=== PATIENT | female | born 2000 | race American Indian/Alaskan Native ===

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

== ENCOUNTER 2020-01-21 19:58 | Emergency (ER) | payer MEDICAID ==
[2020-01-21 21:49] LABS: Basophils # (Auto) 0.1 K/mm3 (0.0-0.1); Basophils % (Auto) 0.9 % (0.0-1.8); Eosinophils # (Auto) 0.4 K/mm3 (0.0-0.4); Eosinophils % (Auto) 4.4 % (0.0-4.3); Hematocrit 35.4 % (30.3-42.9); Hemoglobin 11.5 gm/dl (10.1-14.3); Lymphocytes # (Auto) 2.1 K/mm3 (1.2-5.4); Lymphocytes % (Auto) 25.5 % (13.4-35.0); Mean Corpuscular HGB Conc 32 % (30-34); Mean Corpuscular Volume 84 fl (79-97); Monocytes # (Auto) 0.7 K/mm3 (0.0-0.8); Monocytes % (Auto) 8.8 % (0.0-7.3); Platelet Count 299 K/mm3 (140-440); Red Blood Count 4.23 M/mm3 (3.65-5.03); Red Cell Distribution Width 17.1 % (13.2-15.2)
[2020-01-21 21:52] LABS: Bacteria,Urine 1+ /HPF (Negative); Bilirubin,Urine NEG (Negative); Blood,Urine MOD (Negative); Color,Urine Yellow (Yellow); Urobilinogen,Urine < 2.0 mg/dL (<2.0)
[2020-01-21 21:53] LABS: RBC,Urine > 182.0 /HPF (0.0-6.0)
[2020-01-21] MEDS ORDERED: ACETAMINOPHEN 325 MG TAB PO ONE (22:50)
[2020-01-21] MEDS ORDERED: ACETAMINOPHEN 325 MG TAB ONE (22:51)
--- NOTE | 2020-01-21 23:27 | Emergency Department Report ---
ED HPI - General Chief complaint: Vaginal Bleeding Stated complaint: VAG BLEED (13 WKS PREG) Time Seen by Provider: 01/21/20 22:25 Source: patient Mode of arrival: Ambulatory Limitations: No Limitations - History of Present Illness Initial comments: Patient is a 19-year-old female presents emergency room with complaints of vaginal bleeding that began this morning. She has associated lower abdominal cramping. She states that she has had to change her pad approximately 6 times today. She states that she is currently 13 weeks . She states that she is supposed to be going to [facility] but has not had her first appointment yet. She does not report any fever, nausea, vomiting, diarrhea, cough, shortness of breath, chest pain. She denies any past medical history. She states she has an allergy to Robitussin. She states her last menstrual cycle was 10/07/2019. /P:1/A:1 - Related Data Previous Rx's Medication Instructions Recorded Last Taken Type Benzonatate [Tessalon Perles] 100 mg PO Q8HR #30 capsule 09/28/19 Unknown Rx Ciprofloxacin HCl [Ciprofloxacin 500 mg PO Q12HR #14 tab 09/28/19 Unknown Rx TAB] Cyclobenzaprine [Flexeril] 10 mg PO TID PRN #10 tablet 09/28/19 Unknown Rx Ibuprofen [Motrin 800 MG tab] 800 mg PO Q8HR PRN #20 tablet 09/28/19 Unknown Rx Allergies Allergy/AdvReac Type Severity Reaction Status Date / Time guaifenesin [From Robitussin] Allergy Swelling Verified 09/28/19 19:52 ED Review of Systems ROS: Stated complaint: VAG BLEED (13 WKS PREG) Other details as noted in HPI Comment: All other systems reviewed and negative ED Past Medical Hx - Past Medical History Previous Medical History?: Yes Hx Headaches / Migraines: Yes - Surgical History Past Surgical History?: No - Social History Smoking Status: Never Smoker - Medications Home Medications: Home Medications Medication Instructions Recorded Confirmed Last Taken Type Benzonatate [Tessalon Perles] 100 mg PO Q8HR #30 capsule 09/28/19 Unknown Rx Ciprofloxacin HCl [Ciprofloxacin 500 mg PO Q12HR #14 tab 09/28/19 Unknown Rx TAB] Cyclobenzaprine [Flexeril] 10 mg PO TID PRN #10 tablet 09/28/19 Unknown Rx Ibuprofen [Motrin 800 MG tab] 800 mg PO Q8HR PRN #20 tablet 09/28/19 Unknown Rx ED Physical Exam - General Limitations: No Limitations General appearance: alert, in no apparent distress - Head Head exam: Present: atraumatic, normocephalic - Eye Eye exam: Present: normal appearance - ENT ENT exam: Present: mucous membranes moist - Respiratory Respiratory exam: Present: normal lung sounds bilaterally. Absent: respiratory distress, wheezes, rales, rhonchi, stridor, chest wall tenderness, accessory muscle use, decreased breath sounds, prolonged expiratory - Cardiovascular Cardiovascular Exam: Present: regular rate, normal rhythm, normal heart sounds. Absent: systolic murmur, diastolic murmur, rubs, gallop - GI/Abdominal GI/Abdominal exam: Present: soft, tenderness (mild lower), normal bowel sounds. Absent: distended, guarding, rebound, rigid - Neurological Exam Neurological exam: Present: alert, oriented X3 - Psychiatric Psychiatric exam: Present: normal affect, normal mood - Skin Skin exam: Present: warm, dry, intact ED Course Vital Signs 01/21/20 01/22/20 20:36 00:01 Temperature 98.2 F Pulse Rate 72 Respiratory 20 15 Rate Blood Pressure 106/67 Blood Pressure 120/77 [Right] O2 Sat by Pulse 99 Oximetry ED Medical Decision Making - Lab Data Result diagrams: 01/21/20 21:22 Lab Results 01/21/20 01/21/20 01/21/20 Range/Units 21:22 21:22 21:22 WBC 8.4 (4.5-11.0) K/mm3 RBC 4.23 (3.65-5.03) M/mm3 Hgb 11.5 (10.1-14.3) gm/dl Hct 35.4 (30.3-42.9) % MCV 84 (79-97) fl MCH 27 L (28-32) pg MCHC 32 (30-34) % RDW 17.1 H (13.2-15.2) % Plt Count 299 (140-440) K/mm3 Lymph % (Auto) 25.5 (13.4-35.0) % [place] % (Auto) 8.8 H (0.0-7.3) % Eos % (Auto) 4.4 H (0.0-4.3) % Baso % (Auto) 0.9 (0.0-1.8) % Lymph # 2.1 (1.2-5.4) K/mm3 [place] # 0.7 (0.0-0.8) K/mm3 Eos # 0.4 (0.0-0.4) K/mm3 Baso # 0.1 (0.0-0.1) K/mm3 Seg Neutrophils % 60.4 (40.0-70.0) % Seg Neutrophils # 5.1 (1.8-7.7) K/mm3 HCG, Quant 1978 H (0-4) mIU/mL Urine Color (Yellow) Urine Turbidity (Clear) Urine pH (5.0-7.0) Ur Specific [place] (1.003-1.030) Urine Protein (Negative) mg/dL Urine Glucose (UA) (Negative) mg/dL Urine Ketones (Negative) mg/dL Urine Blood (Negative) Urine Nitrite (Negative) Urine Bilirubin (Negative) Urine Urobilinogen (<2.0) mg/dL Ur Leukocyte Esterase (Negative) Urine WBC (Auto) (0.0-6.0) /HPF Urine RBC (Auto) (0.0-6.0) /HPF U Epithel Cells (Auto) (0-13.0) /HPF Urine Bacteria (Auto) (Negative) /HPF Urine WBC Clumps /HPF Urine Yeast (Budding) /HPF Blood Type O POSITIVE Ord Rhogam Gestat Weeks Rh pos WEEKS 01/21/20 Range/Units Unknown WBC (4.5-11.0) K/mm3 RBC (3.65-5.03) M/mm3 Hgb (10.1-14.3) gm/dl Hct (30.3-42.9) % MCV (79-97) fl MCH (28-32) pg MCHC (30-34) % RDW (13.2-15.2) % Plt Count (140-440) K/mm3 Lymph % (Auto) (13.4-35.0) % [place] % (Auto) (0.0-7.3) % Eos % (Auto) (0.0-4.3) % Baso % (Auto) (0.0-1.8) % Lymph # (1.2-5.4) K/mm3 [place] # (0.0-0.8) K/mm3 Eos # (0.0-0.4) K/mm3 Baso # (0.0-0.1) K/mm3 Seg Neutrophils % (40.0-70.0) % Seg Neutrophils # (1.8-7.7) K/mm3 HCG, Quant (0-4) mIU/mL Urine Color Yellow (Yellow) Urine Turbidity Turbid (Clear) Urine pH 9.0 H (5.0-7.0) Ur Specific [place] 1.018 (1.003-1.030) Urine Protein 30 mg/dl (Negative) mg/dL Urine Glucose (UA) Neg (Negative) mg/dL Urine Ketones Neg (Negative) mg/dL Urine Blood Mod (Negative) Urine Nitrite Neg (Negative) Urine Bilirubin Neg (Negative) Urine Urobilinogen < 2.0 (<2.0) mg/dL Ur Leukocyte Esterase Sm (Negative) Urine WBC (Auto) 33.0 H (0.0-6.0) /HPF Urine RBC (Auto) > 182.0 (0.0-6.0) /HPF U Epithel Cells (Auto) 3.0 (0-13.0) /HPF Urine Bacteria (Auto) 1+ (Negative) /HPF Urine WBC Clumps 3+ /HPF Urine Yeast (Budding) 2+ /HPF Blood Type Ord Rhogam Gestat Weeks WEEKS - Radiology Data Radiology results: report reviewed US OB <= 14 weeks fetus INDICATION / CLINICAL INFORMATION: Vaginal bleeding 13 weeks . COMPARISON: 12/31/2019 FINDINGS: No intrauterine is identified. Uterus is mildly enlarged. Endometrial canal measures 8 mm. Both ovaries are normal in size and appearance. IMPRESSION: No intrauterine identified. Signer Name: Bhanu Goyal MD FACR Signed: 01/22/2020 12:02 AM Workstation Name: [id number] Transcribed By: MS Dictated By: Bhanu Goyal MD Electronically Authenticated By: Bhanu Goyal MD Signed Date/Time: 01/22/20 0002 DD/ 0001 TD/TT: - Medical Decision Making Patient is a 19-year-old female presents emergency room with complaints of vaginal bleeding that began this morning. She has associated lower abdominal cramping. She states that she has had to change her pad approximately 6 times today. She states that she is currently 13 weeks . She states that she is supposed to be going to [facility] but has not had her first appointment yet. She does not report any fever, nausea, vomiting, diarrhea, cough, shortness of breath, chest pain. She denies any past medical history. She states she has an allergy to Robitussin. She states her last menstrual cycle was 10/07/2019. /P:1/A:1. Vitals are normal. hCG quant today is 1977. during [place] [id number]. UA has many red blood cells, there is some white blood cells and very small leukocyte esterase, most likely contamination secondary to red blood cells, patient is not having any urinary symptoms, will have patient have her urine repeated by [facility]. US OB: No intrauterine identified. hCG quant has decreased and ultrasound consistent with a spontaneous . Discussed all results with patient. advised pt to Please increase your water intake. Follow-up with [facility] in the next 2-3 days. Return to emergency room for any new or worsening symptoms. Critical care attestation.: If time is entered above; I have spent that time in minutes in the direct care of this critically ill patient, excluding procedure time. ED Disposition Clinical Impression: Spontaneous miscarriage Disposition: DC-01 TO HOME OR SELFCARE Is pt being admited?: No Does the pt Need Aspirin: No Condition: Stable Instructions: Spontaneous Miscarriage (ED) Additional Instructions: Please increase your water intake. Follow-up with [facility] in the next 2-3 days. Return to emergency room for any new or worsening symptoms. Referrals: [facility] [Provider Group] - 2-3 Days Time of Disposition: 00:12 Print Language: WELSH
--- NOTE | 2020-01-22 00:06 | Ultrasound Report ---
US OB <= 14 weeks fetus INDICATION / CLINICAL INFORMATION: Vaginal bleeding 13 weeks . COMPARISON: 12/31/2019 FINDINGS: No intrauterine is identified. Uterus is mildly enlarged. Endometrial canal measures 8 mm. Both ovaries are normal in size and appearance. IMPRESSION: No intrauterine identified. Signer Name: Bhanu Goyal MD FACR Signed: 01/22/2020 12:02 AM Workstation Name: [employer]
[2020-01-22 00:12] VITALS: BP 120/77
== END 2020-01-22 00:20 | disposition home or self-care (01) ==
LOC: ED 19:58
DX: O03.9 Complete or unspecified spontaneous abortion without complication (principal); Z3A.13 13 weeks gestation of pregnancy
CPT/HCPCS: 36415; 76801; 81001; 84702; 85025; 86900; 86901; 87086; 99284

== ENCOUNTER 2021-05-28 09:49 | Outpatient (CLI) | payer MEDICAID ==
[2021-05-28 10:20] VITALS: BP 110/74
[2021-05-28 11:33] LABS: Basophils % (Auto) 0.2 % (0.0-1.8); Eosinophils # (Auto) 0.2 K/mm3 (0.0-0.4); Eosinophils % (Auto) 1.9 % (0.0-4.3); Hematocrit 33.6 % (30.3-42.9); Hemoglobin 11.6 gm/dl (10.1-14.3); Lymphocytes # (Auto) 0.9 K/mm3 (1.2-5.4); Mean Corpuscular HGB Conc 34 % (30-34); Mean Corpuscular Volume 91 fl (79-97); Monocytes # (Auto) 0.7 K/mm3 (0.0-0.8); Monocytes % (Auto) 6.8 % (0.0-7.3); Platelet Count 173 K/mm3 (140-440); Red Cell Distribution Width 14.9 % (13.2-15.2)
[2021-05-28 11:37] LABS: Bilirubin,Urine NEG (Negative); Blood,Urine NEG (Negative); Color,Urine Yellow (Yellow); Mucus,Urine 3+ /HPF; RBC,Urine < 1.0 /HPF (0.0-6.0)
[2021-05-28] MEDS ORDERED: BETAMET ACET/BETAMET NA PH 6 MG/ML INJ 5 ML MDV IM STA (12:20)
[2021-05-28] MEDS ORDERED: BETAMET ACET/BETAMET NA PH 6 MG/ML INJ 5 ML MDV IM ONE (12:22)
== END 2021-05-28 13:58 | disposition home or self-care (01) ==
LOC: TRG 09:49 → APU 09:51 → TRG 13:58
PROVIDERS: ATTEND Obstetrics & Gynecology
DX: O26.892 Other specified pregnancy related conditions, second trimester (principal); R10.9 Unspecified abdominal pain; Z3A.24 24 weeks gestation of pregnancy
CPT/HCPCS: 36415; 59020; 81001; 82731; 85025; 96372; J0702

== ENCOUNTER 2021-05-29 12:42 | Outpatient (CLI) | payer MEDICAID ==
[2021-05-29] MEDS ORDERED: BETAMET ACET/BETAMET NA PH 6 MG/ML INJ 5 ML MDV IM ONE (13:25)
== END 2021-05-29 13:42 | disposition home or self-care (01) ==
LOC: TRG 12:42 → APU 12:43 → TRG 13:42
PROVIDERS: ATTEND Obstetrics & Gynecology
DX: Z34.92 Encounter for supervision of normal pregnancy, unspecified, second trimester (principal); Z3A.23 23 weeks gestation of pregnancy
CPT/HCPCS: 96372; J0702

== ENCOUNTER 2021-07-07 00:18 | Outpatient (CLI) | payer MEDICAID ==
[2021-07-07] MEDS ORDERED: LACTATED RINGERS 500 ML IV ONE (00:31)
[2021-07-07 00:32] VITALS: BP 116/77
[2021-07-07] MEDS ORDERED: ACETAMINOPHEN 500 MG TAB PO ONE (01:14)
[2021-07-07] MEDS ORDERED: TERBUTALINE 1 MG/1 ML INJ SUB-Q PRN (01:14)
[2021-07-07] MEDS ORDERED: LACTATED RINGERS 1,000 ML IV ONE (01:14)
[2021-07-07 01:55] LABS: Bilirubin,Urine NEG (Negative); Blood,Urine NEG (Negative); Color,Urine Yellow (Yellow); Mucus,Urine 3+ /HPF; Protein,Urine <15 mg/dL mg/dL (Negative)
== END 2021-07-07 02:35 | disposition home or self-care (01) ==
LOC: TRG 00:18 → APU 00:25 → TRG 02:35
PROVIDERS: ATTEND Obstetrics & Gynecology
DX: O62.9 Abnormality of forces of labor, unspecified (principal); O26.893 Other specified pregnancy related conditions, third trimester; R10.9 Unspecified abdominal pain; Z3A.30 30 weeks gestation of pregnancy
CPT/HCPCS: 36415; 59025; 81001; 84112; 96360; J7120

== ENCOUNTER 2021-08-14 13:49 | Inpatient (IN) | payer MEDICAID ==
[2021-08-14 15:31] LABS: Hematocrit 34.8 % (30.3-42.9); Hemoglobin 11.1 gm/dl (10.1-14.3); Mean Corpuscular HGB Conc 32 % (30-34); Mean Corpuscular Volume 90 fl (79-97); Platelet Count 216 K/mm3 (140-440); Red Blood Count 3.87 M/mm3 (3.65-5.03); Red Cell Distribution Width 15.6 % (13.2-15.2)
[2021-08-14 15:52] LABS: Alanine Aminotransferase 7 units/L (7-56); Albumin 4.1 g/dL (3.9-5); Blood Urea Nitrogen 9 mg/dL (7-17); Calcium 9.5 mg/dL (8.4-10.2); Hemolysis Index 11
[2021-08-14 15:54] LABS: BUN/Creatinine Ratio 18
[2021-08-14] MEDS ORDERED: TERBUTALINE 1 MG/1 ML INJ SUB-Q PRN (15:58)
[2021-08-14] MEDS ORDERED: OXYTOCIN 10 UNIT/1 ML INJ IM PRN (15:58)
[2021-08-14] MEDS ORDERED: NalbUPHINE 10 MG/1 ML INJ IV PRN (15:58)
[2021-08-14] MEDS ORDERED: miSOPROStol 200 MCG TAB PR PRN (15:58)
[2021-08-14] MEDS ORDERED: ONDANSETRON 4 MG/2 ML INJ IV PRN (15:58)
[2021-08-14] MEDS ORDERED: ACETAMINOPHEN 325 MG TAB PO PRN (15:58)
[2021-08-14] MEDS ORDERED: ePHEDrine SULFATE 50 MG/1 ML INJ IV PRN (15:58)
[2021-08-14] MEDS ORDERED: METHYLERGONOVINE MALEATE 0.2 MG/ML VIAL IM PRN (15:58)
[2021-08-14] MEDS ORDERED: BUTORPHANOL 2 MG/1 ML INJ IV PRN (15:58)
[2021-08-14] MEDS ORDERED: LOPERAMIDE 2 MG CAP PO PRN (15:58)
[2021-08-14] MEDS ORDERED: CARBOPROST TROMETHAMINE 250 MCG/1 ML INJ IM PRN (15:58)
[2021-08-14] MEDS ORDERED: MINERAL OIL 30 ML ORAL LIQD PO PRN (15:58)
[2021-08-14] MEDS ORDERED: LACTATED RINGERS 1,000 ML IV SCH (16:00)
[2021-08-14] MEDS ORDERED: OXYTOCIN DRIP 30 UNITS/500 ML BAG IV SCH ×2 (16:00)
[2021-08-14] MEDS ORDERED: miSOPROStol 200 MCG TAB VG SCH (16:00)
[2021-08-14] MEDS ORDERED: LIDOCAINE (2%) 20 MG/1 ML VIAL 20 ML MDV INFILTRATI ONE (16:15)
[2021-08-14] MEDS: fentaNYL 100 MCG/2 ML INJ IV PRN ×2 (20:51→23:05)
[2021-08-14] MEDS ORDERED: ZOLPIDEM 5 MG TAB PO ONE (22:53)
[2021-08-15] MEDS: fentaNYL 100 MCG/2 ML INJ IV PRN (02:48)
--- NOTE | 2021-08-15 03:29 | History and Physical Report ---
History of Present Illness Date of examination: 08/15/21 Date of admission: 08/14/21 13:49 Chief complaint: Intrauterine demise History of present illness: 20-year-old -0-1-1 at 34+5 weeks who presents with an intrauterine demise. The patient initiated care in the first trimester. Her course is complicated by a fetus with multiple anomalies ultrasound demonstrated that the had a partially absent calvarium, unilateral c lubfoot, suspected spina bifida. The fetus also demonstrated significant intrauterine growth restriction. The patient was evaluated by MFM and was found to have evidence of a demise. She was sent to labor and delivery for induction of labor. Past History Past Medical History: no pertinent history Past Surgical History: no surgical history Social history: single - Obstetrical History Expected Date of Delivery: 09/21/21 Actual Gestation: 34 Week(s) 5 Day(s) : 3 Para: 1 Hx # Term Pregnancies: 1 Spontaneous Abortions: 1 Induced : 0 Number of Living Children: 1 Medications and Allergies Allergies Allergy/AdvReac Type Severity Reaction Status Date / Time guaifenesin [From Robitussin] Allergy Swelling Verified 09/28/19 19:52 Home Medications Medication Instructions Recorded Confirmed Last Taken Type Benzonatate [Tessalon Perles] 100 mg PO Q8HR #30 capsule 09/28/19 Unknown Rx Ciprofloxacin HCl [Ciprofloxacin 500 mg PO Q12HR #14 tab 09/28/19 Unknown Rx TAB] Cyclobenzaprine [Flexeril] 10 mg PO TID PRN #10 tablet 09/28/19 Unknown Rx Ibuprofen [Motrin 800 MG tab] 800 mg PO Q8HR PRN #20 tablet 09/28/19 Unknown Rx Active Meds: Active Medications Acetaminophen (Acetaminophen 325 Mg Tab) 650 mg PO Q4H PRN PRN Reason: Pain, Mild (1-3) Butorphanol Tartrate (Butorphanol 2 Mg/1 Ml Inj) 1 mg IV Q2H PRN PRN Reason: Pain, Moderate(4-6) LABOR PAIN Carboprost Tromethamine (Carboprost Tromethamine 250 Mcg/1 Ml Inj) 250 mcg IM ONCE PRN PRN Reason: Uterine Bleeding Ephedrine Sulfate (Ephedrine Sulfate 50 Mg/1 Ml Inj) 10 mg IV Q2M PRN PRN Reason: Hypotension Fentanyl (Fentanyl 100 Mcg/2 Ml Inj) 100 mcg IV Q2H PRN PRN Reason: Pain,Severe (7-10) LABOR PAIN Last Admin: 08/15/21 02:48 Dose: 100 mcg Documented by: Oxytocin/Sodium Chloride (Pitocin/Ns 30 Unit/500ml) 30 units in 500 mls @ 2 mls/hr IV TITR NEGRO; Protocol Lactated Ringer's (Lactated Ringers) 1,000 mls @ 125 mls/hr IV DIRECT NEGRO Last Admin: 08/14/21 17:50 Dose: 125 mls/hr Documented by: Oxytocin/Sodium Chloride (Pitocin/Ns 30 Unit/500ml) 30 units in 500 mls @ 40 mls/hr IV TITR NEGRO; Protocol Loperamide HCl (Loperamide 2 Mg Cap) 2 mg PO ONCE PRN PRN Reason: give with Hemabate Methylergonovine Maleate (Methylergonovine Maleate 0.2 Mg/Ml Vial) 0.2 mg IM ONCE PRN PRN Reason: Uterine Bleeding Mineral Oil (Mineral Oil 30 Ml Oral Liqd) 30 ml PO QHS PRN PRN Reason: Constipation Misoprostol (Misoprostol 200 Mcg Tab) 200 mcg VG Q8HR NEGRO Nalbuphine HCl (Nalbuphine 10 Mg/1 Ml Inj) 10 mg IV Q2H PRN PRN Reason: Pain, Moderate (4-6) Ondansetron HCl (Ondansetron 4 Mg/2 Ml Inj) 4 mg IV Q8H PRN PRN Reason: Nausea And Vomiting Oxytocin (Oxytocin 10 Unit/1 Ml Inj) 10 unit IM ONCE PRN PRN Reason: Uterine Bleeding Terbutaline Sulfate (Terbutaline 1 Mg/1 Ml Inj) 0.25 mg SUB-Q ONCE PRN PRN Reason: Hyperstimulation/Hypertonicity Review of Systems All systems: negative Genitourinary: no vaginal bleeding, no leakage of fluid - Vital Signs Vital signs: Vital Signs Pulse Pulse Ox 84 82 L 08/14/21 14:08 08/14/21 14:08 Temp Pulse Resp BP Pulse Ox 98.4 F 86 18 113/58 99 08/14/21 19:00 08/15/21 02:59 08/15/21 02:48 08/15/21 02:59 08/15/21 01:58 - Physical Exam Breasts: Positive: deferred Cardiovascular: Regular rate Lungs: Positive: Clear to auscultation Abdomen: Positive: normal appearance Results Result Diagrams: 08/14/21 15:00 08/14/21 15:00 Abnormal lab results 08/14/21 08/14/21 Range/Units 15:00 15:00 RDW 15.6 H (13.2-15.2) % Creatinine 0.5 L (0.6-1.2) mg/dL All other labs normal. Assessment and Plan - Patient Problems (1) demise Current Visit: Yes Status: Acute Plan to address problem: Admit for induction of labor (2) anomaly Current Visit: Yes Status: Acute
[2021-08-15] MEDS ORDERED: PROMETHAZINE 25 MG RECT SUPP PR PRN (03:33)
[2021-08-15] MEDS ORDERED: MAGNESIUM HYDROXIDE (MOM) ORAL LIQD UDC PO PRN (03:33)
[2021-08-15] MEDS ORDERED: LANOLIN/ZINC/DIMETHICONE (LANSINOH) 7 GM TP PRN (03:33)
[2021-08-15] MEDS ORDERED: WITCH HAZEL/ GLYCERIN PAD TP PRN (03:33)
[2021-08-15] MEDS ORDERED: PROMETHAZINE 25 MG TAB PO PRN (03:33)
[2021-08-15] MEDS ORDERED: ONDANSETRON 4 MG/2 ML INJ IV PRN (03:33)
[2021-08-15] MEDS ORDERED: diphenhydrAMINE 25 MG CAP PO PRN (03:33)
--- NOTE | 2021-08-15 03:33 | Procedure Note ---
OB Delivery Note - Delivery Date of Delivery: 08/15/21 Surgeon: ORLIN KAUR Estimated blood loss: 100cc - Vaginal Delivery presentation: breech Intrapartum events: other(please specify) ( demise; anomalies) Delivery augmentation: pitocin Delivery monitor: external uterine Route of delivery: Delivery placenta: spontaneous Delivery laceration: none Anesthesia: none Delivery comments: The patient had cervical change with the initiation of Cytotec for induction. The patient progressed to complete complete with spontaneous rupture membranes. The fetus was noted to be in breech presentation. The patient pushed to deliver a nonviable male with multiple anomalies. The cord was clamped and cut and the was placed on the warmer. The placenta delivered spontaneously intact. No lacerations were noted. Estimated blood loss less than 100 mL - Infant A at 1 minute: 0 (Weight 1.13 kg) at 5 minutes: 0 Infant Gender: Male
[2021-08-15] MEDS ORDERED: HYDROcodone/ACETAMINOPHEN 5-325 MG TAB PO PRN (03:34)
[2021-08-15] MEDS ORDERED: IBUPROFEN 600 MG TAB PO SCH (04:00)
--- NOTE | 2021-08-15 11:42 | Progress Note ---
Assessment and Plan - Patient Problems (1) demise Current Visit: Yes Status: Acute Plan to address problem: Patient doing well Discharge home this afternoon (2) anomaly Current Visit: Yes Status: Acute Subjective - Subjective Date of service: 08/15/21 Interval history: Patient is without any significant complaints. She reports that her pain is well controlled and her lochia is minimal. The patient desires to be discharged later today. Patient reports: appetite normal, voiding normally, pain well controlled [place]: Objective - Vital Signs Latest vital signs: Vital Signs Temp Pulse Resp BP BP Pulse Ox Pulse Ox 08/15/21 08:36 98.7 F 79 18 120/70 98 08/15/21 05:40 98.3 F 78 20 116/70 98 98 08/15/21 02:59 86 113/58 08/15/21 02:48 18 08/15/21 01:58 108 H 99 08/15/21 01:53 106 H 100 08/15/21 01:48 86 99 08/15/21 01:43 85 100 08/15/21 01:38 86 100 08/15/21 01:14 94 H 99 08/15/21 01:09 90 100 08/15/21 01:04 99 H 100 08/15/21 00:59 89 99 08/15/21 00:54 89 97 08/15/21 00:49 94 H 98 08/15/21 00:44 88 99 08/15/21 00:39 84 100 08/15/21 00:34 83 97 08/15/21 00:24 77 100 08/15/21 00:19 74 100 08/15/21 00:14 77 99 08/15/21 00:09 74 100 08/15/21 00:04 98 H 99 08/14/21 23:59 78 98 08/14/21 23:54 79 98 08/14/21 23:49 78 98 08/14/21 23:44 76 99 08/14/21 23:39 79 97 08/14/21 23:34 79 98 08/14/21 23:29 80 97 08/14/21 23:24 81 97 08/14/21 23:19 81 97 08/14/21 23:14 80 97 08/14/21 23:09 78 97 08/14/21 23:04 91 H 100 10/22/21 22:59 74 99 1022/21 22:54 79 99 22/21 22:49 76 99 22/21 22:44 75 99 22/21 22:39 83 100 22/21 22:34 86 100 22/21 22:29 84 100 22/21 22:24 76 100 22/21 22:19 83 100 22/21 22:14 78 99 22/21 22:09 79 100 22/21 22:04 74 100 22/21 21:59 85 99 22/21 21:54 71 100 22/21 21:49 80 99 22/21 21:44 80 98 22/21 21:39 78 99 22/21 21:34 76 99 22/21 21:29 75 100 22/21 21:24 74 99 22/21 21:19 77 99 22/21 21:14 73 99 22/21 21:09 107 H 99 22/21 21:04 80 100 22/21 20:59 79 100 22/21 20:54 82 100 22/21 20:49 91 H 100 22/21 20:41 87 100 22/21 20:36 87 100 22/21 20:31 83 100 22/21 20:26 85 99 22/21 20:21 80 100 22/21 20:16 82 100 22/21 20:11 77 100 22/21 20:06 80 99 22/21 20:01 83 99 22/21 19:56 80 100 22/21 19:51 79 100 22/21 19:46 73 100 22/21 19:41 75 100 22/21 19:36 74 100 22/21 19:31 73 100 22/21 19:26 83 99 22/21 19:24 50 L 74 L 22/21 19:21 97 H 100 22/21 19:17 68 118/61 22/21 19:16 87 99 22/21 19:07 81 100 22/21 19:02 82 100 10/22/21 19:01 100 10/22/21 19:00 98.4 F 20 100 08/14/21 18:57 88 100 08/14/21 18:52 89 100 08/14/21 18:47 76 100 08/14/21 18:42 83 100 08/14/21 18:40 98.8 F 08/14/21 18:37 78 100 08/14/21 18:32 76 112/72 100 08/14/21 18:27 75 99 08/14/21 18:22 78 100 08/14/21 18:17 72 100 08/14/21 18:12 78 100 08/14/21 18:07 87 100 08/14/21 18:02 82 99 08/14/21 17:57 86 100 08/14/21 17:52 84 111/70 99 08/14/21 17:47 72 100 08/14/21 17:42 80 100 08/14/21 17:37 81 99 08/14/21 17:32 95 H 100 08/14/21 17:27 90 99 08/14/21 17:16 87 100 08/14/21 17:11 86 99 08/14/21 17:06 90 99 08/14/21 17:05 87 94 08/14/21 17:01 80 99 08/14/21 16:56 84 98 08/14/21 16:51 76 99 08/14/21 16:46 97 H 99 08/14/21 16:41 82 100 08/14/21 16:36 78 99 08/14/21 16:31 86 100 08/14/21 16:26 85 100 08/14/21 16:21 79 98 08/14/21 16:16 93 H 97 2221 16:11 89 97 08/14/21 16:06 96 H 88 08/14/21 15:59 82 99 21 15:54 88 98 21 15:49 86 99 21 15:44 78 100 21 15:41 98.4 F 16 21 15:39 90 98 2221 15:34 90 99 22/21 15:29 97 H 99 22/21 15:24 82 99 2221 15:19 81 100 22/21 15:14 78 99 08/14/21 15:09 85 100 08/14/21 15:04 80 99 08/14/21 14:59 85 100 08/14/21 14:54 72 99 08/14/21 14:51 99 08/14/21 14:49 81 99 08/14/21 14:44 87 98 08/14/21 14:42 82 110/71 08/14/21 14:41 98.5 F 85 20 110/71 98 08/14/21 14:39 85 99 08/14/21 14:34 84 98 08/14/21 14:29 77 99 08/14/21 14:24 86 100 08/14/21 14:23 82 92 08/14/21 14:19 84 99 08/14/21 14:14 99 H 99 08/14/21 14:09 99 H 99 08/14/21 14:08 84 82 L Intake and Output 08/14/21 08/15/21 08/15/21 22:59 06:59 14:59 Intake Total 200 240 Output Total 250 Balance 200 -250 240 Intake: IV 200 Left Forearm 200 Oral 240 Output: Urine 250 Void 250 Other: Total, Intake Amount 240 Total, Output Amount 250 # Voids Void 1 Estimated Blood Loss 100 - Labs Labs: Abnormal lab results 08/14/21 08/14/21 Range/Units 15:00 15:00 RDW 15.6 H (13.2-15.2) % Creatinine 0.5 L (0.6-1.2) mg/dL
--- NOTE | 2021-08-15 11:44 | Discharge Summary ---
Providers - Providers Date of Admission: 08/14/21 13:49 Date of discharge: 08/15/21 Attending physician: ORLIN KAUR Primary care physician: ORLIN KAUR Hospitalization Reason for admission: IUFD Delivery: , breech extraction Discharge diagnosis: intrapartum demise baby: male Hospital course: The patient was admitted for induction of labor secondary to intrauterine demise. The fetus was noted to have multiple anomalies. The patient had a breech vaginal delivery of a nonviable male . Her course was unremarkable. Condition at discharge: Good Disposition: 01 HOME / SELF CARE / HOMELESS - Discharge Diagnoses (1) demise Status: Acute (2) anomaly Status: Acute Plan - Discharge Medications Prescriptions: Ibuprofen [Motrin] 800 mg PO Q8HR PRN #30 tablet PRN Reason: Pain , Severe (7-10) HYDROcodone/APAP 5-325 [[place] 5/325] 1 each PO Q6HR PRN #15 tablet PRN Reason: Pain - Provider Discharge Summary Activity: no sex for 6 weeks, no heavy lifting 4 weeks, no strenuous exercise Diet: routine Instructions: routine Additional instructions: [] Smoking cessation referral if applicable(refer to patient education folder for contact #) [] Refer to [facility] Booklet Call your doctor immediately for: * Fever > 100.5 * Heavy vaginal bleeding ( >1 pad per hour) * Severe persistent headache * Shortness of breath * Reddened, hot, painful area to leg or breast * Schedule follow-up in 1 week in the [facility] for [facility] counseling - Follow up plan
[2021-08-15 12:35] LABS: Hematocrit 33.9 % (30.3-42.9); Hemoglobin 11.1 gm/dl (10.1-14.3)
[2021-08-15 12:57] VITALS: BP 109/60
== END 2021-08-15 13:15 | disposition home or self-care (01) | DRG 775 ==
LOC: LD 13:49 → OB 08-15 05:30
PROVIDERS: ADMIT Obstetrics & Gynecology; ATTEND Obstetrics & Gynecology
PROC: 10E0XZZ Delivery of Products of Conception, External Approach (ICD-10-PCS; principal; 2021-08-15)
DX: O36.4XX0 Maternal care for intrauterine death, not applicable or unspecified (principal); Z37.1 Single stillbirth; Z20.822 Contact with and (suspected) exposure to COVID-19; O36.5930 Maternal care for other known or suspected poor fetal growth, third trimester, not applicable or unspecified; O32.1XX0 Maternal care for breech presentation, not applicable or unspecified
CPT/HCPCS: 36415; 80053; 85014; 85018; 85027; 86592; 86850; 86900; 86901; 88307; G0378; J3010; J7120; U0003